=== PATIENT | female | born 1955 | race Caucasian/White ===

== ENCOUNTER 2019-11-20 15:40 | Emergency (ER) | payer MEDICARE, MEDICAID ==
[~2019-11-20] VITALS: Ht 152.4 cm; Wt 80.7 kg
[2019-11-20] MEDS ORDERED: SODIUM CHLORIDE 0.9% 1,000 ML IV ONE (16:21)
[2019-11-20 17:30] LABS: Basophils # (auto) 0 10 ^3/uL (0-0.2); Basophils % (auto) 0.2 % (0.0-2.0); Eosinophils # (auto) 0.1 10 ^3/uL (0-0.8); Eosinophils % (auto) 0.8 % (0.0-7.0); Hematocrit 44.8 % (36.0-46.0); Hemoglobin 15.2 g/dL (12.2-16.2); Lymphocytes # (auto) 2.1 10 ^3/uL (0.4-5.4); Lymphocytes % (auto) 23.5 % (10.0-50.0); Mean Corpuscular Hemoglobin 28.5 pg (28.0-32.0); Mean Corpuscular Volume 83.9 fL (80.0-100.0); Monocytes # (auto) 0.6 10 ^3/uL (0-1.3); Monocytes % (auto) 6.4 % (0.0-12.0); Neutrophils # (auto) 6.1 10 ^3/uL (1.6-8.6); Neutrophils % (auto) 69.1 % (37.0-80.0); Nucleated Red Blood Cells % 0.2 %; Platelet Count (auto) 202 10^3/uL (140-450); Red Blood Cells 5.34 10^6/uL (4.0-5.20); Red Cell Distribution Width 14.1 % (11.8-14.3); White Blood Cell 8.8 10^3/uL (4.4-10.8)
[2019-11-20 17:39] LABS: Anion Gap 7 (5-15); BUN/Creatinine Ratio 11.4; Blood Urea Nitrogen 12 mg/dL (7-18); Calcium 9.2 mg/dL (8.5-10.1); Carbon Dioxide 30 mmol/L (21-32); Chloride 101 mmol/L (98-107); GFR African American 68 mL/min; GFR Non-African American 56 mL/min; Glucose 97 mg/dL (74-106); Potassium 3.2 mmol/L (3.5-5.1); Sodium 138 mmol/L (136-145)
[2019-11-20 17:44] LABS: Alanine Aminotransferase 26 U/L (13-56); Alkaline Phosphatase 120 U/L (45-117); Aspartate Aminotransferase 15 U/L (15-37); Bilirubin, Total 0.4 mg/dL (0.2-1.0); Total Protein 7.9 g/dL (6.4-8.2)
[2019-11-20] MEDS ORDERED: POTASSIUM EFFERVESENT TAB 25 MEQ PO ONE (18:00)
[2019-11-20 18:47] VITALS: BP 149/90
== END 2019-11-20 19:02 | disposition still patient (30) ==
LOC: ER 15:40
DX: R06.02 Shortness of breath (principal); E87.6 Hypokalemia; F41.9 Anxiety disorder, unspecified; J44.9 Chronic obstructive pulmonary disease, unspecified; Z90.49 Acquired absence of other specified parts of digestive tract; Z90.710 Acquired absence of both cervix and uterus
CPT/HCPCS: 36415; 71046; 80053; 83735; 83880; 84443; 84484; 85025; 85379; 93005; 99285; J7030

== ENCOUNTER 2020-02-03 19:19 | Inpatient (IN) | payer MEDICARE, MEDICAID ==
[~2020-02-03] VITALS: Ht 152.4 cm; Wt 86.4 kg
[2020-02-03] MEDS ORDERED: PANTOPRAZOLE 40 MG/10 ML VIAL INJ IV STA (19:36)
[2020-02-03] MEDS ORDERED: ONDANSETRON HCL 4 MG/2 ML VIAL IV ONE (19:45)
[2020-02-03 20:05] LABS: Basophils # (auto) 0 10 ^3/uL (0-0.2); Basophils % (auto) 0.1 % (0.0-2.0); Eosinophils # (auto) 0.3 10 ^3/uL (0-0.8); Eosinophils % (auto) 3.4 % (0.0-7.0); Hemoglobin 12.8 g/dL (12.2-16.2); Lymphocytes # (auto) 1.9 10 ^3/uL (0.4-5.4); Lymphocytes % (auto) 23.7 % (10.0-50.0); Mean Corpuscular Hemoglobin 28.9 pg (28.0-32.0); Mean Corpuscular Hgb Conc. 34.7 g/dL (32.0-36.0); Mean Corpuscular Volume 83.3 fL (80.0-100.0); Monocytes # (auto) 0.7 10 ^3/uL (0-1.3); Monocytes % (auto) 8.1 % (0.0-12.0); Neutrophils # (auto) 5.3 10 ^3/uL (1.6-8.6); Neutrophils % (auto) 64.7 % (37.0-80.0); Platelet Count (auto) 177 10^3/uL (140-450); Red Blood Cells 4.44 10^6/uL (4.0-5.20); Red Cell Distribution Width 14.1 % (11.8-14.3); White Blood Cell 8.2 10^3/uL (4.4-10.8)
[2020-02-03 20:14] LABS: Albumin 3.5 g/dL (3.4-5.0); BUN/Creatinine Ratio 10.5; Calcium 8.6 mg/dL (8.5-10.1); Potassium 3.3 mmol/L (3.5-5.1)
[2020-02-03 20:17] LABS: Bilirubin, Total 0.4 mg/dL (0.2-1.0); Total Protein 6.7 g/dL (6.4-8.2)
[2020-02-03] MEDS ORDERED: MORPHINE SULFATE 4 MG/ML SYR/VIAL IV ONE (21:15)
[2020-02-03] MEDS ORDERED: HYDROmorphone HCL 2 MG/ML VL IV ONE (22:15)
[2020-02-04] MEDS ORDERED: ONDANSETRON HCL 4 MG/2 ML VIAL ONE (03:05)
[2020-02-04] MEDS ORDERED: ONDANSETRON HCL 4 MG/2 ML VIAL IV ONE (03:15)
[2020-02-04] MEDS ORDERED: HYDROcodone-ACET 5/325MG TAB PO PRN (03:30)
[2020-02-04] MEDS ORDERED: ONDANSETRON HCL 4 MG/2 ML VIAL IV PRN (03:30)
[2020-02-04] MEDS ORDERED: MORPHINE SULFATE 4 MG/ML SYR/VIAL IV PRN ×2 (03:30→04:00)
[2020-02-04] MEDS ORDERED: ACETAMINOPHEN 325 MG TAB PO PRN (03:30)
[2020-02-04 04:10] LABS: Basophils # (auto) 0 10 ^3/uL (0-0.2); Basophils % (auto) 0.3 % (0.0-2.0); Eosinophils # (auto) 0.2 10 ^3/uL (0-0.8); Eosinophils % (auto) 3.9 % (0.0-7.0); Hematocrit 34.4 % (36.0-46.0); Hemoglobin 11.9 g/dL (12.2-16.2); Lymphocytes % (auto) 31.6 % (10.0-50.0); Mean Corpuscular Hemoglobin 28.8 pg (28.0-32.0); Mean Corpuscular Hgb Conc. 34.5 g/dL (32.0-36.0); Mean Corpuscular Volume 83.5 fL (80.0-100.0); Monocytes # (auto) 0.5 10 ^3/uL (0-1.3); Monocytes % (auto) 7.2 % (0.0-12.0); Neutrophils # (auto) 3.6 10 ^3/uL (1.6-8.6); Nucleated Red Blood Cells % 0.1 %; Platelet Count (auto) 162 10^3/uL (140-450); Red Blood Cells 4.12 10^6/uL (4.0-5.20); White Blood Cell 6.3 10^3/uL (4.4-10.8)
[2020-02-04 04:19] LABS: Urine Bacteria FEW /hpf (None Seen); Urine Blood Negative /uL (Negative); Urine Specific Gravity 1.003 (1.001-1.035); Urine WBC <1 /hpf (0 - 5)
[2020-02-04 04:27] LABS: BUN/Creatinine Ratio 10.1; Calcium 8.5 mg/dL (8.5-10.1); Potassium 3.2 mmol/L (3.5-5.1)
[2020-02-04] MEDS ORDERED: metroNIDAZOLE 500MG/100ML 100 ML IV SCH (06:00)
[2020-02-04] MEDS ORDERED: KETOROLAC TROMETH 30 MG/ML 1ML VIAL IV ONE (06:15)
[2020-02-04] MEDS: LEVOTHYROXINE SODIUM 100 MCG TAB PO SCH (07:33)
--- NOTE | 2020-02-04 08:35 | NUR ---
MS admit from ER IMANIBIRD admitted to tele/MS after SBAR received from MARQUETRY WORKER. Patient oriented to Jada Elizondo RN primary RN, unit, room, bed, and unit policies regarding patient care and visiting hours. Patient weighed by bedscale and encouraged to call if they need anything
[2020-02-04] MEDS ORDERED: levoFLOXacin 500MG 100 ML IV SCH (09:00)
[2020-02-04] MEDS ORDERED: levoFLOXacin 500MG 100 ML IV ONE (10:00)
[2020-02-04] MEDS: PANTOPRAZOLE 40 MG/10 ML VIAL INJ IV SCH ×2 (10:09→18:32)
[2020-02-04] MEDS ORDERED: FLUT110A INH (10:47)
[2020-02-04] MEDS ORDERED: ALBUAER3 IN (10:47)
[2020-02-04] MEDS ORDERED: FLUT1SPR5 (10:47)
[2020-02-04] MEDS ORDERED: CIPR-173 PO (10:47)
[2020-02-04] MEDS ORDERED: LEVO100T8 PO (10:47)
[2020-02-04] MEDS ORDERED: ATOR10TA PO (10:47)
[2020-02-04] MEDS ORDERED: METR500T PO (10:47)
[2020-02-04] MEDS ORDERED: TRIA75TA55 PO (10:47)
[2020-02-04] MEDS ORDERED: PERCOT PO (10:47)
[2020-02-04] MEDS ORDERED: ONDA-144 PO (10:47)
[2020-02-04] MEDS ORDERED: CLON1TAB PO (10:47)
[2020-02-04] MEDS ORDERED: GEMF600T7 PO (10:47)
[2020-02-04] MEDS ORDERED: FERR-20 PO (10:47)
[2020-02-04] MEDS ORDERED: PANT40TA2 PO (10:47)
[2020-02-04] MEDS ORDERED: [UNRECOGNIZED DRUG - CODE] PO (10:47)
--- NOTE | 2020-02-04 11:20 | NUR ---
Patient upset Patient threw cell phone and states that she is in pain and morphine does not help her. She is requesting Dilaudid IV. Advised patient that this nurse is trying to get in contact with Dr. De Luna for orders. Patient upset and requesting charge nurse and boilerhouse mechanic.
--- NOTE | 2020-02-04 11:40 | NUR ---
Charge nurse and housekeeping room attendant at bedside Patient expressing concerns regarding care. Patient is stating that she has not had anything to drink since last night. Patient has fresh ice water at bedside that this nurse provided. Patient requesting diet to be advanced to full liquid. Advised patient that this nurse has to discuss POC with MD and will attempt to advance diet if appropriate.
[2020-02-04] MEDS: HYDROmorphone HCL 2 MG/ML VL IV PRN ×3 (11:57→20:34)
--- NOTE | 2020-02-04 11:59 | NUR ---
Received new orders Received new orders from Dr. De Luna for Sorin PRADON. Will medicate patient per MD orders.
--- NOTE | 2020-02-04 14:00 | NUR ---
Endorsed care Gave report to Tania Morrison RN. All questions answered.
--- NOTE | 2020-02-04 19:30 | NUR ---
NOTE Tift patient yelling "I AM CHOKING! I NEED HELP, I AM CHOKING." Went into the room to assess patient. Patient was standing out of bed. Respirations were unlabored and no s/s of any respiratory distress. Patient tried to stick her finger down her throat. I educated patient saying she can harm herself this way. Patient stopped and took a drink of water. No difficulties swallowing observed. From this point, patient got back into bed and was in no distress. I took the meal tray out of the room with permission of the patient.
--- NOTE | 2020-02-04 19:53 | NUR ---
CARE ENDORSED A family member called in concern of the incident that happened about the patient feeling like she was having difficulties swallowing. Patient requesting new nurse. cable driller notified of situation. Gave report to WINSOME Wayne.
[2020-02-04] MEDS: ATORVASTATIN 20 MG TAB PO SCH (21:46)
[2020-02-04 22:00] VITALS: BP 129/70
[2020-02-04] MEDS ORDERED: clonazePAM 0.5 MG TAB PO ONE (22:30)
[2020-02-05 05:00] VITALS: BP 118/90
[2020-02-05] MEDS: LEVOTHYROXINE SODIUM 100 MCG TAB PO SCH (06:37)
--- NOTE | 2020-02-05 07:35 | NUR ---
Opening shift note Assumed care of patient from NOC RN Tone. Patient is AOX4 no signs and symptoms of distress noted. Patient stated "This facility is going to let me . The nurses have not cared for me like they did at [facility]. I have not seen a doctor " Educated patient that she will be seeing a doctor today, and that doctors begin rounds at 1000. Patient verbalized understanding. Educated patient to call from help as needed. Bed is in lowest locked position, side rails up x2, and call light is within reach. Updated patient on plan of care and patient verbalized understanding.
[2020-02-05] MEDS: HYDROmorphone HCL 2 MG/ML VL IV PRN ×3 (08:50→21:39)
[2020-02-05] MEDS: PANTOPRAZOLE 40 MG/10 ML VIAL INJ IV SCH ×2 (08:50→17:32)
[2020-02-05 09:00] VITALS: BP 154/76
[2020-02-05] MEDS ORDERED: levoFLOXacin 250MG 50 ML IV SCH (10:00)
[2020-02-05 10:18] LABS: Basophils # (auto) 0 10 ^3/uL (0-0.2); Basophils % (auto) 0.3 % (0.0-2.0); Eosinophils # (auto) 0.2 10 ^3/uL (0-0.8); Eosinophils % (auto) 3.6 % (0.0-7.0); Hematocrit 38.1 % (36.0-46.0); Hemoglobin 12.9 g/dL (12.2-16.2); Lymphocytes % (auto) 17.8 % (10.0-50.0); Mean Corpuscular Hemoglobin 28.3 pg (28.0-32.0); Mean Corpuscular Hgb Conc. 33.9 g/dL (32.0-36.0); Mean Corpuscular Volume 83.4 fL (80.0-100.0); Monocytes # (auto) 0.3 10 ^3/uL (0-1.3); Monocytes % (auto) 5.8 % (0.0-12.0); Neutrophils # (auto) 3.9 10 ^3/uL (1.6-8.6); Neutrophils % (auto) 72.5 % (37.0-80.0); Nucleated Red Blood Cells % 0.1 %; Platelet Count (auto) 177 10^3/uL (140-450); Red Blood Cells 4.57 10^6/uL (4.0-5.20); Red Cell Distribution Width 14.1 % (11.8-14.3); White Blood Cell 5.4 10^3/uL (4.4-10.8)
[2020-02-05 10:33] LABS: Albumin 3.4 g/dL (3.4-5.0); Calcium 8.9 mg/dL (8.5-10.1); Potassium 3.4 mmol/L (3.5-5.1)
[2020-02-05 10:36] LABS: BUN/Creatinine Ratio 12.6; Bilirubin, Total 0.5 mg/dL (0.2-1.0); Total Protein 6.4 g/dL (6.4-8.2)
--- NOTE | 2020-02-05 12:24 | NUR ---
Physician rounding Dr. Biggs at nurses station, new orders received. Will follow through.
[2020-02-05] MEDS: KETOROLAC TROMETH 30 MG/ML 1ML VIAL IV PRN ×2 (12:44→20:52)
--- NOTE | 2020-02-05 12:46 | NUR ---
Pain medication Patient educated regarding change of PRN medications. Patient verbalized understanding. Informed patient that Dilaudid 0.5mg was discontinued and the dose is now 1mg. Educated patient that pain medication is not available and Toradol can be provided. Patient stated " I know, I asked Dr. Biggs for that medication for in between my Dilaudid. I want something for pain now." Educated patient that Toradol can be given, patient verbalized understanding. After medication administration patient stated "I want my Dilaudid now, It helps my pain better than Toradol." Educated patient that close and frequent pain medication administration can cause respiratory depression and other serious health issues. Patient stated "I understand that, this medication just does not help me. I want Dilaudid, my pain is now at 9!" Educated patient that Dilaudid can be provided after 4 hours have been met. Patient verbalized "You are withholding the medication I want it now. I want to speak to who is in charge." Notified charge nurse Jeff regarding patient wishing to speak to her.
[2020-02-05 13:00] VITALS: BP 157/79
--- NOTE | 2020-02-05 13:00 | NUR ---
Patient stated " I want to be transferred to a different facility. I came from [facility] and they cared for me better." Educated patient that she has the right to sign out of hospital, patient stated "I do not want to sign out, I want Dr. Biggs to send me to [facility]". Educated patient that transfer is determined by attending physician and health status. Patient stated "You don't know anything. I will call Dr. Biggs myself I have his card information." Educated patient to call for assistance as needed. Will continue to monitor q1hr and PRN.
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
--- NOTE | 2020-02-05 13:57 | NUR ---
Spoke with Nutrition Received call from Glory from nutrition regarding patients food requests. Per Glory patient was upset that the lunch tray contained cold items, per patient she cannot eat cold things. Glory stated that patient was requesting foods that contain reported allergens. Per Glory she educated patient that foods containing reported allergens cannot be provided. Per Glory she will be sending up a tray with warm foods for the patient, and will arrange the patients dinner tray and food trays for the next day as well. Will educated patient regarding food allergens and will confirm allergies with patient.
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
[2020-02-05 17:33] VITALS: BP 141/90
--- NOTE | 2020-02-05 18:30 | NUR ---
Patient found at elevators, patient stated "i am hungry i did not like my tray and i want to buy a fruit punch." Educated patient that patients cannot go to the cafeteria. Escorted patient back to room and patient verbalized understanding. Patient asked ELLA Rubalcava to get her a "fruit punch from downstairs."
--- NOTE | 2020-02-05 19:10 | NUR ---
End of shift note endorsed care to nor WINSOME Hinds. No s/s of distress noted.
[2020-02-05] MEDS: clonazePAM 0.5 MG TAB PO SCH (21:40)
[2020-02-05] MEDS: ATORVASTATIN 20 MG TAB PO SCH (21:41)
[2020-02-05 21:48] VITALS: BP 136/72
[2020-02-06] MEDS: HYDROmorphone HCL 2 MG/ML VL IV PRN ×6 (02:00→22:15)
[2020-02-06] MEDS: KETOROLAC TROMETH 30 MG/ML 1ML VIAL IV PRN ×3 (04:52→22:16)
[2020-02-06 05:00] VITALS: BP 129/70
[2020-02-06] MEDS: PANTOPRAZOLE 40 MG/10 ML VIAL INJ IV SCH ×2 (07:03→16:28)
[2020-02-06] MEDS: LEVOTHYROXINE SODIUM 100 MCG TAB PO SCH (07:04)
[2020-02-06 09:00] VITALS: BP 116/60
[2020-02-06 14:15] VITALS: BP 130/54
[2020-02-06] MEDS ORDERED: LORazepam 2MG/ML-1ML VIAL IV ONE (16:00)
--- NOTE | 2020-02-06 16:10 | NUR ---
PT SEEN BY SCAR BENJAMIN, SHE SAID TO CLUSTER INTERVENTION SO THAT PT CAN REST, ORDERED TO GIVE ATIVAN.
[2020-02-06 17:00] VITALS: BP 140/79
--- NOTE | 2020-02-06 17:15 | NUR ---
PT WAS UPSET THAT SHE IS GETTING A ROOM MATE, PT IS COMPLAINING SHE CANNOT SLEEP AND REQUESTING TO CLOSE THE DOOR .
--- NOTE | 2020-02-06 17:30 | NUR ---
PT TRANSFERRED TO ROOM 283.
--- NOTE | 2020-02-06 19:10 | NUR ---
RECEIVED REPORT FROM NURSE THORPE TO RESUME CARE OF PATIENT.
--- NOTE | 2020-02-06 19:30 | NUR ---
Opening Shift Note Assumed care of patient, awake and alert. No S/S of distress/SOB but does c/o 10/10 abdominal pain and high anxiety requesting medication to calm her down and medicaiton for bowel movement, since LBM was 01/30/31. Instructed on POC and to call for assist PRN, will continue to monitor for changes Q1hr and PRN.
--- NOTE | 2020-02-06 19:50 | NUR ---
PAGED ONCALL INFORMED SCROLL SAW OPERATOR SCAR SOURAV PATIENT IS STILL HAVING ANXIETY AND HAS CONSTIPATION. RECEIVED ORDER FOR LACTULOSE 20GM/30ML PO DAILY PRN FOR CONSTIPATION NO FURTHER ORDERS FOR ANXIETY
[2020-02-06] MEDS: clonazePAM 0.5 MG TAB PO SCH (20:12)
[2020-02-06] MEDS: ATORVASTATIN 20 MG TAB PO SCH (20:12)
[2020-02-06] MEDS ORDERED: LACTULOSE 20Gm/30ML SOLN PO PRN (20:15)
--- NOTE | 2020-02-06 21:30 | NUR ---
NEURO CONSULT DR WOODARD AT BEDSIDE FOR NEURO CONSULT. INFORMED DR WOODARD PATIENT HAS HIGH ANXIETY HISTORY OF ANXIETY, DEPRESSION, AND PTSD. DR WOODARD STATES HE WILL ORDER TELEPSYCH EVALUATION.
[2020-02-06] MEDS ORDERED: LORazepam 2MG/ML-1ML VIAL IV PRN (21:45)
[2020-02-06] MEDS: SODIUM CHLORIDE 0.9% 1,000 ML IV SCH (21:45)
--- NOTE | 2020-02-06 22:00 | NUR ---
PATIENT REFUSED TELEPSYCH AND IVF. INFORMED PATIENT THAT SINCE SHE HAD HIGH ANXIETY DR WOODARD ORDERED THE TELEPSYCH.
--- NOTE | 2020-02-06 23:45 | NUR ---
NURSE MAY VALERO STATES SHE DID NOT DO PATIENT VITALS BECAUSE SHE WAS TOLD ONLY ASSIGNED NURSE IS ALLOWED TO GO INTO THE ROOM, NURSE VALERO WAS ASSIGNED TO PATIENT HER FACILITY SALES AND ADMIN NO PRIMARY ASSIGNMENT WAS ASSIGNED. PATIENT TOLD ME THAT SHE JUST WANTS TO SLEEP AT THIS TIME.
[2020-02-07] MEDS: LEVOTHYROXINE SODIUM 100 MCG TAB PO SCH (06:14)
[2020-02-07] MEDS: PANTOPRAZOLE 40 MG/10 ML VIAL INJ IV SCH ×2 (06:14→17:12)
[2020-02-07] MEDS: HYDROmorphone HCL 2 MG/ML VL IV PRN ×5 (06:15→23:58)
[2020-02-07] MEDS: SODIUM CHLORIDE 0.9% 1,000 ML IV SCH ×2 (06:23→17:45)
--- NOTE | 2020-02-07 07:30 | NUR ---
Opening Shift Note Assumed care of patient, awake and alert. No S/S of distress/SOB or pain. Instructed on POC and to call for assist PRN, will continue to monitor for changes Q1hr and PRN. Fall precautions in place per safety protocol.
[2020-02-07 08:00] VITALS: BP 121/43
[2020-02-07] MEDS: KETOROLAC TROMETH 30 MG/ML 1ML VIAL IV PRN ×2 (09:19→22:16)
[2020-02-07] MEDS ORDERED: DexAMETHasone INJECTION 10 MG in D5W 5% 50 ML IV SCH (10:00)
--- NOTE | 2020-02-07 12:12 | NUR ---
Nutrition Assessment Est energy needs 20-23 kcal/kg [phone] kcal (20-23 kcal/kg BW 84.7kg) Est protein needs 48-62g (1-1.3g/kg IBW 47.7kg) Will reassess prn. Addendum: 02/07/20 at [address] Amended: Links added.
[2020-02-07 13:00] VITALS: BP 147/71
[2020-02-07] MEDS: LORazepam 2MG/ML-1ML VIAL IV PRN (20:15)
[2020-02-07 22:00] VITALS: BP 143/69
[2020-02-07] MEDS: clonazePAM 0.5 MG TAB PO SCH (22:13)
[2020-02-07] MEDS: ATORVASTATIN 20 MG TAB PO SCH (22:15)
--- NOTE | 2020-02-07 22:33 | NUR ---
Patient called at the beginning of shift asking about pain medications being missed, explained that these medications she is asking are as needed not timed so she has to call for them. Patient had several questions and concerns, reassured patient that her concerns will be relayed to appropriate staff members.
[2020-02-08] MEDS: SODIUM CHLORIDE 0.9% 1,000 ML IV SCH (03:45)
--- NOTE | 2020-02-08 03:47 | NUR ---
TELE PSYCH REQUEST DONE, CONFIRMED WITH BRITTNEE. WILL CALL TELE PSYCH FOR FOLLOW UP WHEN PATIENT WAKES UP.
[2020-02-08 05:00] VITALS: BP 116/44
--- NOTE | 2020-02-08 05:00 | NUR ---
PT REFUSED 0500 TEMP TO BE TAKEN AT TIME WHEN VITALS WERE TAKEN RN WAS NOTIFIED
[2020-02-08] MEDS: LORazepam 2MG/ML-1ML VIAL IV PRN ×2 (05:24→12:57)
[2020-02-08] MEDS: LEVOTHYROXINE SODIUM 100 MCG TAB PO SCH (05:27)
[2020-02-08] MEDS: PANTOPRAZOLE 40 MG/10 ML VIAL INJ IV SCH (05:28)
[2020-02-08] MEDS: HYDROmorphone HCL 2 MG/ML VL IV PRN ×2 (05:31→12:13)
--- NOTE | 2020-02-08 05:32 | NUR ---
TELE PSYCH INFO: PATIENT IS AWAKE AND REMINDED HER THAT TELE PSYCH IS READY, PATIENT SAID SHE DOESN'T WANT TO DO IT THIS EARLY.
[2020-02-08 09:00] VITALS: BP 115/47
--- NOTE | 2020-02-08 09:19 | NUR ---
Patient requesting "Dilaudid and Ativan" at this time. Pt requesting meds to be given "together" at this time d/t c/o "pain and anxiety". Pt educated on risks and side effects of medication including respiratory depression. Patient states she just showered and now feels short of breath, no distress noted. This rn notified pt that pain med can be given as ordered and will reassess VS including RR and administer Ativan 30 mins post Dilaudid. Patient refusing and requesting "supervisor tank storage or someone that can give them together because doctor said it was okay". Reinforced teaching regarding medication safety including risks of resp depression but pt refusing to listen at this time. music industry intern Jeff notified and compressor house operator Rakel and they will speak to her at bedside once available.
--- NOTE | 2020-02-08 09:40 | NUR ---
Patient continues to refuse Dilaudid for pain as ordered stating she wants "both dilaudid and ativan together". Patient continues to say she does not have SOB what she has is "difficulty breathing". Pt reluctant to teaching regarding s/e, s/s including resp depression stating "you are not going to school me on what I already know". Awaiting charge and house sup to speak to patient at this time. No acute distress noted, pt noted making her own bed with no sob noted.
[2020-02-08] MEDS ORDERED: DexAMETHasone INJECTION 10 MG in D5W 5% 50 ML IV SCH (10:00)
--- NOTE | 2020-02-08 10:50 | NUR ---
GI at bedside MD Biggs at bedside, aware of patient's status including pt c/o "pain and anxiety" and requesting IV meds to be given together despite pt reporting difficulty breathing. Per MD Biggs pt not cleared for dc at this time and to be monitored for one more day as pt reports she cannot tolerate PO pain meds still. Patient re-educated regarding ability to give Dilaudid iv as ordered for pain at this time, reassess 30 mins after and if vs stable including RR will medicate with Ativan as ordered to avoid resp distress and for safety but pt refusing. high school learning support teacher Jeff at bedside instructed and educated pt on the same thing and so did MD Biggs. Per MD Biggs page doctor Calixto for pain management control. MD De Luna paged at this time.
--- NOTE | 2020-02-08 11:15 | NUR ---
Spoke to MD De Luna and made aware of pt status including c/o pain and anxiety and requesting Dilaudid and Ativan to be given together. New orders received for Pain management consult and to NOT administer both IV medications as it can cause resp depression/distress and to instruct patient that one or the other can be given. Then after reassessment next will be given if VSS and RR wnl. MD De Luna states to instruct patient that Dr Valencia will be consulted to manage pain. This rn notified patient and charge master coordinator Jeff at bedside as well, pt requesting different nurse at this time stating "I don't like smart [facility] nurses I like the old school nurses that just do what I want". No acute distress or sob noted call light within reach.
--- NOTE | 2020-02-08 11:58 | NUR ---
Assumed Pt Care Assumed pt care from WINSOME Bansal. All questions were answered and report received.
[2020-02-08 12:59] VITALS: BP 140/79
[2020-02-08 13:00] VITALS: BP 139/64
[2020-02-08 13:26] VITALS: BP 140/79
--- NOTE | 2020-02-08 14:00 | NUR ---
Pt Education Provided pt with education regarding medications taking while in the hospital. [place]-lets provided with information.
--- NOTE | 2020-02-08 14:10 | NUR ---
IV D/C'ed IV to pt's L AC d/c'ed. Catheter was removed fully intact. Site is asymptomatic. Pressure was applied to site with gauze and then wrapped in coban. Pt instructed to keep dressing on.
--- NOTE | 2020-02-08 15:03 | NUR ---
Pt D/C'ed Off Unit Pt d/c'ed off unit. Pt wheeled off unit via wheelchair with all of her belongings. Pt provided all education material, follow up appointment information, and all questions were answered. IV was d/c'ed prior to d/c. Pt provided prescriptions.
--- NOTE | 2020-02-08 15:30 | NUR ---
Pt Calls Back to Unit Pt states that she is unable to fill her RX. Per pt, "I am unable to fill my prescription... they won't take the prescription because the order is wrong... you need to fix it". Per pt, she is at [facility] and [address], . Told patient that I would notify my charger operator of situation, attempt to contact Dr De Luna and HIEU Willis with issue, as well as the pharmacy. Pt provided her contact number, . Notified charger operator, Jeff. She informed me to contact Dr De Luna. 1610: Left message with Dr De Luna's answering service 1621: Left Message with HIEU Willis. 1629: HIEU Willis messaged me back. She has contacted the pharmacy. They do not carry the specific dose of medication. Pharmacy is requesting a new prescription for the available generic dose. SLD EDUCATIONAL AIDE stated that pt is able to tow picker the new prescription by Monday.
--- NOTE | 2020-02-09 16:42 | NUR ---
1530 02/09/20 Received a call from PAWAN Thorpe regarding patient calling agency for a nurse. I spoke with supervisor case loading Moe who stated no discharge order was written for home health PT. I informed Maurilio of the above.
== END 2020-02-08 15:01 | disposition home or self-care (01) | DRG 392 ==
LOC: ER 19:19 → EDBD 19:19 → OVERFLOW 19:20 → WEST WING 02-04 08:32
PROVIDERS: ADMIT Nurse Practitioner; ATTEND Internal Medicine
DX: K21.0 Gastro-esophageal reflux disease with esophagitis (principal); G61.81 Chronic inflammatory demyelinating polyneuritis; K42.9 Umbilical hernia without obstruction or gangrene; E03.9 Hypothyroidism, unspecified; F43.10 Post-traumatic stress disorder, unspecified; R07.89 Other chest pain; G25.81 Restless legs syndrome; G43.109 Migraine with aura, not intractable, without status migrainosus; G47.00 Insomnia, unspecified; J44.9 Chronic obstructive pulmonary disease, unspecified; E11.9 Type 2 diabetes mellitus without complications; F17.200 Nicotine dependence, unspecified, uncomplicated; Z96.651 Presence of right artificial knee joint; I10 Essential (primary) hypertension; Z80.1 Family history of malignant neoplasm of trachea, bronchus and lung; Z83.3 Family history of diabetes mellitus; Z90.710 Acquired absence of both cervix and uterus
CPT/HCPCS: 36415; 70551; 74176; 80048; 80053; 81001; 83690; 84436; 84443; 84480; 84484; 85025; 87081; 93005; C9113; G0378; J1100; J1885; J1956; J2405; J3490; J7060

== ENCOUNTER 2020-12-09 10:27 | Inpatient (IN) | payer MEDICARE, MEDICAID ==
[~2020-12-09] VITALS: Ht 152.4 cm; Wt 90.0 kg
[~2020-12-09 10:27] MED LIST: ALBUAER3 IN; ATOR10TA PO; CLON1TAB PO; FERR-20 PO; FLUT110A INH; FLUT1SPR5; GEMF-19 PO; LEVO100T8 PO; ONDA-144 PO; PANT40TA2 PO; TRIA75TA55 PO; [UNRECOGNIZED DRUG - CODE] PO
[2020-12-09 12:00] LABS: Basophils # (auto) 0 10 ^3/uL (0-0.2); Basophils % (auto) 0.3 % (0.0-2.0); Eosinophils # (auto) 0 10 ^3/uL (0-0.8); Hematocrit 48.6 % (36.0-46.0); Hemoglobin 17.5 g/dL (12.2-16.2); Lymphocytes # (auto) 0.8 10 ^3/uL (0.4-5.4); Lymphocytes % (auto) 5.1 % (10.0-50.0); Mean Corpuscular Hemoglobin 29.3 pg (28.0-32.0); Mean Corpuscular Volume 81.5 fL (80.0-100.0); Monocytes # (auto) 0.4 10 ^3/uL (0-1.3); Monocytes % (auto) 2.7 % (0.0-12.0); Neutrophils % (auto) 91.9 % (37.0-80.0); Nucleated Red Blood Cells % 0.4 %; Red Blood Cells 5.96 10^6/uL (4.0-5.20); Red Cell Distribution Width 14.1 % (11.8-14.3); White Blood Cell 15.3 10^3/uL (4.4-10.8)
[2020-12-09] MEDS ORDERED: SODIUM CHLORIDE 0.9% 1,000 ML IVB ONE (12:00)
[2020-12-09] MEDS ORDERED: PANTOPRAZOLE 40 MG/10 ML VIAL INJ IV ONE (12:00)
[2020-12-09] MEDS ORDERED: LEVO125T PO (12:10)
[2020-12-09] MEDS ORDERED: CLON1TAB10 PO (12:10)
[2020-12-09] MEDS ORDERED: AMLO-496 PO (12:10)
[2020-12-09] MEDS ORDERED: PANT40T (12:10)
[2020-12-09] MEDS ORDERED: SYMBICORT (12:10)
[2020-12-09] MEDS ORDERED: FLUT50SP NAS (12:10)
[2020-12-09] MEDS ORDERED: FLUT44AE INH (12:10)
[2020-12-09 12:18] LABS: Urine Bacteria FEW /hpf (None Seen); Urine Blood Negative /uL (Negative); Urine Budding Yeast FEW /hpf (None Seen); Urine Hyaline Cast FEW /lpf (0 - 2); Urine Mucus FEW (None Seen); Urine Specific Gravity 1.028 (1.001-1.035); Urine WBC 2 /hpf (0 - 5)
[2020-12-09] MEDS ORDERED: MORPHINE SULF INJ 2 MG/ML SYRINGE 1ML IV ONE ×2 (12:30→16:15)
[2020-12-09] MEDS ORDERED: ONDANSETRON HCL 4 MG/2 ML VIAL IV ONE ×2 (12:30→16:15)
[2020-12-09 12:31] LABS: Albumin 4.4 g/dL (3.4-5.0); Calcium 9.8 mg/dL (8.5-10.1); Magnesium 2.4 mg/dL (1.6-2.6); Potassium 3.1 mmol/L (3.5-5.1)
[2020-12-09 12:35] LABS: BUN/Creatinine Ratio 21.7; Bilirubin, Total 0.8 mg/dL (0.2-1.0); Total Protein 8.6 g/dL (6.4-8.2)
[2020-12-09 12:52] LABS: Lipase 58 U/L (73-393)
[2020-12-09 14:41] LABS: INR 1.03 (0.9-1.15); Partial Thromboplastin Time 24.9 sec (23.0-31.2)
[2020-12-09] MEDS ORDERED: cefTRIAXone 1GM/50ML D5W 50 ML IV ONE (16:00)
[2020-12-09] MEDS: metroNIDAZOLE 500MG/100ML 100 ML IV ONE ×2 (16:00→16:03)
[2020-12-09] MEDS ORDERED: POTASSIUM CHL 20MEQ/100ML 100 ML IV ONE (16:15)
[2020-12-09] MEDS ORDERED: NITROGLYCERIN 0.4 MG SL TAB SL PRN (16:45)
[2020-12-09] MEDS ORDERED: MORPHINE SULF INJ 2 MG/ML SYRINGE 1ML IV PRN ×2 (16:45)
[2020-12-09] MEDS: SODIUM CHLORIDE 0.9% 1,000 ML IV SCH (17:32)
[2020-12-09] MEDS: ONDANSETRON HCL 4 MG/2 ML VIAL IV PRN (20:57)
[2020-12-09 22:00] VITALS: BP 159/99
[2020-12-09] MEDS ORDERED: hydrALAZINE HCL 20 MG/ML VL IV PRN (22:15)
[2020-12-09] MEDS: metroNIDAZOLE 500MG/100ML 100 ML IV SCH (22:45)
[2020-12-09] MEDS: HYDROmorphone HCL 2 MG/ML VL IV PRN (23:17)
[2020-12-10] MEDS: SODIUM CHLORIDE 0.9% 1,000 ML IV SCH ×3 (00:45→16:45)
[2020-12-10] MEDS ORDERED: hydrALAZINE HCL 20 MG/ML VL IV PRN (01:00)
[2020-12-10 02:08] VITALS: BP 112/76
[2020-12-10] MEDS: HYDROmorphone HCL 2 MG/ML VL IV PRN ×5 (03:50→23:39)
[2020-12-10 05:00] VITALS: BP 115/66
[2020-12-10 05:45] LABS: Basophils # (auto) 0 10 ^3/uL (0-0.2); Basophils % (auto) 0.1 % (0.0-2.0); Eosinophils # (auto) 0 10 ^3/uL (0-0.8); Hematocrit 34.7 % (36.0-46.0); Hemoglobin 12.7 g/dL (12.2-16.2); Mean Corpuscular Hemoglobin 29.8 pg (28.0-32.0); Neutrophils # (auto) 7.4 10 ^3/uL (1.6-8.6); Red Blood Cells 4.26 10^6/uL (4.0-5.20)
[2020-12-10 05:47] LABS: Eosinophils % (auto) 0.4 % (0.0-7.0); Lymphocytes # (auto) 1.6 10 ^3/uL (0.4-5.4); Lymphocytes % (auto) 16.8 % (10.0-50.0); Mean Corpuscular Volume 81.6 fL (80.0-100.0); Monocytes # (auto) 0.7 10 ^3/uL (0-1.3); Monocytes % (auto) 6.7 % (0.0-12.0); Red Cell Distribution Width 13.7 % (11.8-14.3); White Blood Cell 9.7 10^3/uL (4.4-10.8)
[2020-12-10 06:03] LABS: Albumin 2.9 g/dL (3.4-5.0); Calcium 7.7 mg/dL (8.5-10.1)
[2020-12-10 06:07] LABS: BUN/Creatinine Ratio 18.2; Bilirubin, Total 0.6 mg/dL (0.2-1.0); Total Protein 5.4 g/dL (6.4-8.2)
[2020-12-10] MEDS: metroNIDAZOLE 500MG/100ML 100 ML IV SCH ×3 (06:08→22:23)
[2020-12-10 06:15] LABS: Mean Corpuscular Hgb Conc. 36.5 g/dL (32.0-36.0)
[2020-12-10] MEDS: LEVOTHYROXINE SODIUM 50 MCG TAB PO SCH (06:20)
[2020-12-10] MEDS ORDERED: LEVOTHYROXINE SODIUM 100 MCG TAB PO SCH (07:00)
[2020-12-10 08:25] LABS: Magnesium 1.8 mg/dL (1.6-2.6)
[2020-12-10 08:29] LABS: Phosphorus 2.4 mg/dL (2.5-4.90)
[2020-12-10] MEDS ORDERED: POTASSIUM CHL 20 Meq TABLET PO ONE (08:45)
[2020-12-10 09:00] VITALS: BP 109/50
[2020-12-10] MEDS: levoFLOXacin 500 MG TAB PO SCH (09:39)
[2020-12-10] MEDS: PANTOPRAZOLE 40 MG/10 ML VIAL INJ IV SCH ×2 (09:40→21:35)
[2020-12-10] MEDS ORDERED: ATORVASTATIN 20 MG TAB PO SCH (10:00)
[2020-12-10] MEDS ORDERED: PANTOPRAZOLE 40 MG TAB PO SCH (10:00)
[2020-12-10] MEDS: POTASSIUM CHL 20MEQ/100ML 100 ML IV SCH ×2 (10:00→11:21)
[2020-12-10] MEDS ORDERED: amLODIPine BESYLATE 5 MG TAB PO SCH (10:00)
[2020-12-10] MEDS ORDERED: POTASSIUM PHOSPHATE 22 MEQ in SODIUM CHL 0.9% 100 ML IV ONE ×2 (10:30→20:45)
[2020-12-10] MEDS ORDERED: LORazepam 2MG/ML-1ML VIAL IV ONE (11:00)
[2020-12-10] MEDS ORDERED: MAGNESIUM SULFATE 1GM/100ML 100 ML IV SCH (11:00)
[2020-12-10] MEDS: FERROUS SULFATE 325mg EC TAB PO SCH ×2 (11:18→18:00)
[2020-12-10] MEDS: GEMFIBROZIL 600 MG TAB PO SCH ×2 (11:19→21:36)
[2020-12-10] MEDS: FLUTICASONE PROP NASAL SPR 0.05 % (50MCG) 16GM EACHNOSTRI SCH ×2 (11:21→21:35)
[2020-12-10] MEDS ORDERED: POTASSIUM CHL 20 Meq TABLET PO SCH (12:00)
[2020-12-10] MEDS ORDERED: GOLYTELY 4L KIT PO ONE (12:30)
[2020-12-10] MEDS: clonazePAM 0.5 MG TAB PO PRN (12:50)
[2020-12-10 13:00] VITALS: BP 109/54
[2020-12-10 17:00] VITALS: BP 99/63
[2020-12-10] MEDS: amLODIPine BESYLATE 5 MG TAB PO SCH (18:00)
[2020-12-10] MEDS: SUCRALFATE 1 GM/10 ML ORAL SUSP PO SCH ×2 (18:32→21:35)
[2020-12-10] MEDS: MAGNESIUM SULFATE 1GM/100ML 100 ML IV SCH ×2 (21:05→23:33)
[2020-12-10] MEDS: ATORVASTATIN 20 MG TAB PO SCH (21:36)
[2020-12-10 22:00] VITALS: BP 111/70
[2020-12-11] MEDS: SODIUM CHLORIDE 0.9% 1,000 ML IV SCH ×3 (02:23→16:45)
[2020-12-11 05:00] VITALS: BP 108/59
[2020-12-11] MEDS: SUCRALFATE 1 GM/10 ML ORAL SUSP PO SCH ×4 (05:14→20:21)
[2020-12-11] MEDS: LEVOTHYROXINE SODIUM 50 MCG TAB PO SCH (05:14)
[2020-12-11] MEDS: metroNIDAZOLE 500MG/100ML 100 ML IV SCH ×3 (06:10→20:20)
[2020-12-11] MEDS: HYDROmorphone HCL 2 MG/ML VL IV PRN ×3 (06:11→20:21)
[2020-12-11 07:10] LABS: Basophils # (auto) 0 10 ^3/uL (0-0.2); Basophils % (auto) 0.2 % (0.0-2.0); Eosinophils # (auto) 0.1 10 ^3/uL (0-0.8); Eosinophils % (auto) 0.9 % (0.0-7.0); Hematocrit 32.4 % (36.0-46.0); Hemoglobin 11.5 g/dL (12.2-16.2); Lymphocytes # (auto) 1.8 10 ^3/uL (0.4-5.4); Lymphocytes % (auto) 24.3 % (10.0-50.0); Mean Corpuscular Hemoglobin 29.1 pg (28.0-32.0); Mean Corpuscular Hgb Conc. 35.5 g/dL (32.0-36.0); Mean Corpuscular Volume 82.1 fL (80.0-100.0); Monocytes # (auto) 0.4 10 ^3/uL (0-1.3); Monocytes % (auto) 5.3 % (0.0-12.0); Neutrophils # (auto) 5.2 10 ^3/uL (1.6-8.6); Neutrophils % (auto) 69.3 % (37.0-80.0); Nucleated Red Blood Cells % 0.1 %; Red Blood Cells 3.94 10^6/uL (4.0-5.20); Red Cell Distribution Width 14.2 % (11.8-14.3); White Blood Cell 7.5 10^3/uL (4.4-10.8)
[2020-12-11 07:22] LABS: Potassium 3.4 mmol/L (3.5-5.1)
[2020-12-11 07:43] LABS: Albumin 2.5 g/dL (3.4-5.0); BUN/Creatinine Ratio 11.1; Bilirubin, Total 0.4 mg/dL (0.2-1.0); Calcium 7.9 mg/dL (8.5-10.1); Total Protein 5.3 g/dL (6.4-8.2)
[2020-12-11] MEDS: FERROUS SULFATE 325mg EC TAB PO SCH ×2 (08:00→18:00)
[2020-12-11 09:00] VITALS: BP 97/52
[2020-12-11] MEDS: FLUTICASONE PROP NASAL SPR 0.05 % (50MCG) 16GM EACHNOSTRI SCH ×2 (10:00→22:00)
[2020-12-11] MEDS: PANTOPRAZOLE 40 MG/10 ML VIAL INJ IV SCH ×2 (10:00→20:21)
[2020-12-11] MEDS: TRIAMTERENE/HCTZ 37.5/25 MG CAP/TAB PO SCH (10:00)
[2020-12-11] MEDS: levoFLOXacin 500 MG TAB PO SCH (10:00)
[2020-12-11] MEDS: GEMFIBROZIL 600 MG TAB PO SCH ×2 (10:00→20:21)
[2020-12-11] MEDS: HCTZ 25 MG TAB PO SCH (10:00)
[2020-12-11] MEDS ORDERED: MIDAZOLAM HCL 2MG/2ML 2ml VIAL (1mg/ml) ONE (10:32)
[2020-12-11] MEDS ORDERED: MEPERIDINE HCL (25 MG/ML) 1ML VIAL ONE (10:32)
[2020-12-11] MEDS ORDERED: fentaNYL CITRATE 100 MCG/2 ML VL ONE (10:32)
[2020-12-11] MEDS ORDERED: LIDOCAINE VISCOUS 2% 15ML UD ONE (10:38)
[2020-12-11] MEDS ORDERED: HYDROmorphone HCL 2 MG/ML VL IV PRN (10:45)
[2020-12-11] MEDS ORDERED: MIDAZOLAM HCL 2MG/2ML 2ml VIAL (1mg/ml) IV PRN (10:45)
[2020-12-11] MEDS ORDERED: LABETALOL HCL 5 MG/ML 4ML SYRINGE IV PRN (10:45)
[2020-12-11] MEDS ORDERED: MORPHINE SULFATE 4 MG/ML SYR/VIAL IV PRN (10:45)
[2020-12-11] MEDS ORDERED: ePHEDrine SULFATE 50 MG/ML AMP IV PRN (10:45)
[2020-12-11] MEDS ORDERED: ONDANSETRON HCL 4 MG/2 ML VIAL IV PRN (10:45)
[2020-12-11] MEDS ORDERED: PROPOFOL 10 MG/ML 20 ML IV ONE (12:46)
[2020-12-11] MEDS ORDERED: DexAMETHasone SOD PHOS 10MG/1ML VIAL INJ ONE (12:46)
[2020-12-11 13:00] VITALS: BP 112/75
[2020-12-11] MEDS ORDERED: HYDROmorphone HCL 2 MG/ML VL IV ONE (14:00)
[2020-12-11] MEDS ORDERED: WITCH HAZEL-GLYCERIN PAD TOP PRN (15:15)
[2020-12-11 17:00] VITALS: BP 115/62
[2020-12-11] MEDS: amLODIPine BESYLATE 5 MG TAB PO SCH (18:00)
[2020-12-11 19:30] VITALS: BP 119/65
[2020-12-11] MEDS: MUPIROCIN 2% OINT 15gm or 22gm EACHNOSTRI SCH (20:20)
[2020-12-11] MEDS: ATORVASTATIN 20 MG TAB PO SCH (20:22)
[2020-12-11] MEDS: clonazePAM 0.5 MG TAB PO PRN (20:31)
[2020-12-11 22:00] VITALS: BP 119/65
[2020-12-12] MEDS: SODIUM CHLORIDE 0.9% 1,000 ML IV SCH ×3 (00:45→14:17)
[2020-12-12] MEDS: HYDROmorphone HCL 2 MG/ML VL IV PRN ×5 (02:50→20:50)
[2020-12-12] MEDS: clonazePAM 0.5 MG TAB PO PRN ×2 (02:58→19:45)
[2020-12-12 05:00] VITALS: BP 115/54
[2020-12-12] MEDS: metroNIDAZOLE 500MG/100ML 100 ML IV SCH ×3 (06:16→21:20)
[2020-12-12] MEDS: LEVOTHYROXINE SODIUM 50 MCG TAB PO SCH (06:20)
[2020-12-12] MEDS: SUCRALFATE 1 GM/10 ML ORAL SUSP PO SCH ×4 (06:20→21:20)
[2020-12-12 07:20] LABS: Basophils # (auto) 0 10 ^3/uL (0-0.2); Basophils % (auto) 0.1 % (0.0-2.0); Eosinophils # (auto) 0 10 ^3/uL (0-0.8); Hematocrit 29.6 % (36.0-46.0); Hemoglobin 10.8 g/dL (12.2-16.2); Lymphocytes # (auto) 1.1 10 ^3/uL (0.4-5.4); Mean Corpuscular Hemoglobin 29.8 pg (28.0-32.0); Mean Corpuscular Volume 81.5 fL (80.0-100.0); Monocytes # (auto) 0.6 10 ^3/uL (0-1.3); Monocytes % (auto) 6.8 % (0.0-12.0); Neutrophils # (auto) 7.5 10 ^3/uL (1.6-8.6); Neutrophils % (auto) 81.1 % (37.0-80.0); Red Blood Cells 3.63 10^6/uL (4.0-5.20); Red Cell Distribution Width 13.8 % (11.8-14.3); White Blood Cell 9.3 10^3/uL (4.4-10.8)
[2020-12-12 07:23] LABS: Mean Corpuscular Hgb Conc. 36.5 g/dL (32.0-36.0)
[2020-12-12] MEDS: ONDANSETRON HCL 4 MG/2 ML VIAL IV PRN (07:36)
[2020-12-12 07:40] LABS: Albumin 2.6 g/dL (3.4-5.0); Calcium 7.8 mg/dL (8.5-10.1); Potassium 3.7 mmol/L (3.5-5.1)
[2020-12-12 07:44] LABS: BUN/Creatinine Ratio 17.2; Bilirubin, Total 0.2 mg/dL (0.2-1.0); Total Protein 5.5 g/dL (6.4-8.2)
[2020-12-12 09:00] VITALS: BP 102/55
[2020-12-12] MEDS: FERROUS SULFATE 325mg EC TAB PO SCH ×2 (09:12→18:00)
[2020-12-12] MEDS: HCTZ 25 MG TAB PO SCH (10:20)
[2020-12-12] MEDS: levoFLOXacin 500 MG TAB PO SCH (10:20)
[2020-12-12] MEDS: PANTOPRAZOLE 40 MG/10 ML VIAL INJ IV SCH ×2 (10:20→21:20)
[2020-12-12] MEDS: GEMFIBROZIL 600 MG TAB PO SCH ×2 (10:21→21:21)
[2020-12-12] MEDS: MUPIROCIN 2% OINT 15gm or 22gm EACHNOSTRI SCH ×2 (10:22→21:20)
[2020-12-12] MEDS: FLUTICASONE PROP NASAL SPR 0.05 % (50MCG) 16GM EACHNOSTRI SCH ×2 (10:22→21:20)
[2020-12-12] MEDS: TRIAMTERENE/HCTZ 37.5/25 MG CAP/TAB PO SCH (10:24)
[2020-12-12 12:45] VITALS: BP 102/55
[2020-12-12 13:00] VITALS: BP 143/68
[2020-12-12] MEDS: OXYCODONE W/ ACETAMINOPHEN 5/325MG TABLET PO PRN ×2 (13:57→22:50)
[2020-12-12 17:00] VITALS: BP 137/69
[2020-12-12] MEDS: amLODIPine BESYLATE 5 MG TAB PO SCH (18:00)
[2020-12-12] MEDS: ATORVASTATIN 20 MG TAB PO SCH (21:20)
[2020-12-12 21:30] VITALS: BP 144/68
[2020-12-13] MEDS: SODIUM CHLORIDE 0.9% 1,000 ML IV SCH ×3 (00:38→16:45)
[2020-12-13] MEDS: HYDROmorphone HCL 2 MG/ML VL IV PRN ×7 (02:05→22:08)
[2020-12-13 05:00] VITALS: BP 105/63
[2020-12-13 06:17] LABS: Basophils # (auto) 0 10 ^3/uL (0-0.2); Basophils % (auto) 0.2 % (0.0-2.0); Eosinophils # (auto) 0.1 10 ^3/uL (0-0.8); Eosinophils % (auto) 1.2 % (0.0-7.0); Hematocrit 27.5 % (36.0-46.0); Lymphocytes # (auto) 2.5 10 ^3/uL (0.4-5.4); Lymphocytes % (auto) 31.3 % (10.0-50.0); Mean Corpuscular Hgb Conc. 36.3 g/dL (32.0-36.0); Mean Corpuscular Volume 82.7 fL (80.0-100.0); Monocytes # (auto) 0.5 10 ^3/uL (0-1.3); Neutrophils # (auto) 4.9 10 ^3/uL (1.6-8.6); Neutrophils % (auto) 61.3 % (37.0-80.0); Nucleated Red Blood Cells % 0.1 %; Red Blood Cells 3.33 10^6/uL (4.0-5.20)
[2020-12-13] MEDS: metroNIDAZOLE 500MG/100ML 100 ML IV SCH ×3 (06:17→22:08)
[2020-12-13] MEDS: SUCRALFATE 1 GM/10 ML ORAL SUSP PO SCH ×5 (06:17→22:00)
[2020-12-13] MEDS: LEVOTHYROXINE SODIUM 50 MCG TAB PO SCH (06:18)
[2020-12-13 06:48] LABS: Potassium 3.4 mmol/L (3.5-5.1)
[2020-12-13 06:58] LABS: Albumin 2.5 g/dL (3.4-5.0); Bilirubin, Total 0.2 mg/dL (0.2-1.0); Calcium 7.5 mg/dL (8.5-10.1); Total Protein 5.4 g/dL (6.4-8.2)
[2020-12-13] MEDS: FERROUS SULFATE 325mg EC TAB PO SCH ×2 (07:53→18:07)
[2020-12-13] MEDS: OXYCODONE W/ ACETAMINOPHEN 5/325MG TABLET PO PRN ×2 (08:11→23:59)
[2020-12-13 09:00] VITALS: BP 141/76
[2020-12-13] MEDS: ONDANSETRON HCL 4 MG/2 ML VIAL IV PRN (09:33)
[2020-12-13] MEDS: PANTOPRAZOLE 40 MG/10 ML VIAL INJ IV SCH ×2 (09:33→22:08)
[2020-12-13] MEDS: levoFLOXacin 500 MG TAB PO SCH (09:33)
[2020-12-13] MEDS: GEMFIBROZIL 600 MG TAB PO SCH (09:34)
[2020-12-13] MEDS: TRIAMTERENE/HCTZ 37.5/25 MG CAP/TAB PO SCH (10:59)
[2020-12-13] MEDS: MUPIROCIN 2% OINT 15gm or 22gm EACHNOSTRI SCH ×2 (10:59→22:05)
[2020-12-13] MEDS: FLUTICASONE PROP NASAL SPR 0.05 % (50MCG) 16GM EACHNOSTRI SCH ×2 (10:59→22:06)
[2020-12-13] MEDS: HCTZ 25 MG TAB PO SCH (11:00)
[2020-12-13] MEDS ORDERED: LACTULOSE 20Gm/30ML SOLN PO PRN (12:15)
[2020-12-13 12:56] VITALS: BP 131/69
[2020-12-13 16:46] VITALS: BP 103/56
[2020-12-13] MEDS: Ensure HIGH Protein Vanilla 8oz Bottle PO SCH (18:07)
[2020-12-13] MEDS: clonazePAM 0.5 MG TAB PO PRN (20:41)
[2020-12-13 22:00] VITALS: BP 136/74
[2020-12-13] MEDS ORDERED: amLODIPine BESYLATE 5 MG TAB PO SCH (22:00)
[2020-12-13] MEDS: ATORVASTATIN 20 MG TAB PO SCH (22:09)
[2020-12-14] MEDS: SODIUM CHLORIDE 0.9% 1,000 ML IV SCH ×2 (00:45→10:28)
[2020-12-14] MEDS: HYDROmorphone HCL 2 MG/ML VL IV PRN ×4 (04:59→15:54)
[2020-12-14 05:00] VITALS: BP 114/61
[2020-12-14] MEDS: metroNIDAZOLE 500MG/100ML 100 ML IV SCH ×2 (06:33→13:20)
[2020-12-14] MEDS: SUCRALFATE 1 GM/10 ML ORAL SUSP PO SCH ×2 (06:33→11:30)
[2020-12-14] MEDS ORDERED: HCTZ 25 MG TAB PO SCH (07:00)
[2020-12-14] MEDS ORDERED: GEMFIBROZIL 600 MG TAB PO SCH (07:00)
[2020-12-14] MEDS ORDERED: TRIAMTERENE/HCTZ 37.5/25 MG CAP/TAB PO SCH (07:00)
[2020-12-14] MEDS: LEVOTHYROXINE SODIUM 50 MCG TAB PO SCH (07:07)
[2020-12-14] MEDS: MUPIROCIN 2% OINT 15gm or 22gm EACHNOSTRI SCH (08:16)
[2020-12-14] MEDS: Ensure HIGH Protein Vanilla 8oz Bottle PO SCH (08:16)
[2020-12-14] MEDS: FERROUS SULFATE 325mg EC TAB PO SCH (08:16)
[2020-12-14] MEDS: FLUTICASONE PROP NASAL SPR 0.05 % (50MCG) 16GM EACHNOSTRI SCH (08:17)
[2020-12-14] MEDS ORDERED: OMNIPAQUE ORAL SOLN 500ml 12mg/ml PO ONE (08:26)
[2020-12-14 09:00] VITALS: BP 139/70
[2020-12-14] MEDS: levoFLOXacin 500 MG TAB PO SCH (10:07)
[2020-12-14] MEDS: OXYCODONE W/ ACETAMINOPHEN 5/325MG TABLET PO PRN (10:07)
[2020-12-14] MEDS: PANTOPRAZOLE 40 MG/10 ML VIAL INJ IV SCH (10:07)
[2020-12-14] MEDS ORDERED: IOHEXOL 300 MG/ML 100ML BOTTLE IJ ONE (11:21)
[2020-12-14 13:00] VITALS: BP 125/78
[2020-12-14] MEDS: clonazePAM 0.5 MG TAB PO PRN (13:21)
== END 2020-12-14 17:00 | disposition home or self-care (01) | DRG 377 ==
LOC: EDSEX 10:27 → ER 10:27 → EDBD 10:27 → TELE 16:43 → TELE-WESTW 21:02 → WEST WING 12-12 13:15
PROVIDERS: ADMIT Internal Medicine; ATTEND Internal Medicine
PROC: 0DJ08ZZ Inspection of Upper Intestinal Tract, Via Natural or Artificial Opening Endoscopic (ICD-10-PCS; principal; 2020-12-11 11:04)
PROC: 0DBM8ZX Excision of Descending Colon, Via Natural or Artificial Opening Endoscopic, Diagnostic (ICD-10-PCS; 2020-12-11 11:04)
DX: K29.71 Gastritis, unspecified, with bleeding (principal); N17.0 Acute kidney failure with tubular necrosis; J96.01 Acute respiratory failure with hypoxia; K55.9 Vascular disorder of intestine, unspecified; Z20.822 Contact with and (suspected) exposure to COVID-19; E87.6 Hypokalemia; I10 Essential (primary) hypertension; K21.9 Gastro-esophageal reflux disease without esophagitis; E78.5 Hyperlipidemia, unspecified; K22.0 Achalasia of cardia; E03.9 Hypothyroidism, unspecified; Z79.899 Other long term (current) drug therapy; Z91.012 Allergy to eggs; Z88.0 Allergy status to penicillin; Z91.013 Allergy to seafood; Z88.2 Allergy status to sulfonamides; Z88.6 Allergy status to analgesic agent; Z88.5 Allergy status to narcotic agent; Z88.8 Allergy status to other drugs, medicaments and biological substances; Z83.3 Family history of diabetes mellitus; Z90.710 Acquired absence of both cervix and uterus; D50.0 Iron deficiency anemia secondary to blood loss (chronic)
CPT/HCPCS: 36415; 71045; 74176; 74177; 80053; 81001; 82270; 83690; 83735; 83880; 84100; 84443; 84484; 85025; 85049; 85610; 85730; 86850; 86900; 86901; 87045; 87426; 87427; 93005; 96361; 96365; 96375; 99291; C9113; G0378; J0696; J1100; J2250; J2405; J2704; J3480; J3490